=== PATIENT | female | born 1975 | race Caucasian/White ===

== ENCOUNTER 2017-05-13 21:42 | Emergency (ER) | payer OTHER ==
[~2017-05-13] VITALS: Ht 160 cm; Wt 79.4 kg
--- NOTE | ~2017-05-13 | CR72 ---
[facility]. [facility] A Service of [facility] & [facility] RADIOLOGY TEXT RESULTS PATIENT: STELLA SOLIS LOCATION: SED : 71 UNIT #: [id number] AGE: [address]: Favian Manning DO SEX: F ORDER DR: [id number] [place] [id number] E MR#: [id number] Acc #: [id number] NAME: STELLA SOLIS : 1975 SEX: F STUDY DATE/TIME: 05/13/2017 22:39 UNIT: SED ROOM: STUDY DESCRIPTION: CR Chest Single View Portable Attending Physician: Favian Manning Ordering Physician: Favian Manning Primary Care Physician: Primary Care Physician No MEDICAL IMAGING REPORT This report is preliminary unless electronic signature is present. EXAM Chest x-ray, 05/13/2017 HISTORY 42-year-old female in the ED complaining of chest pain and shortness of air beginning earlier today. TECHNIQUE AP portable upright chest x-ray. FINDINGS Heart size and pulmonary vascularity are normal. The lungs are clear. No visible pulmonary infiltrate or pleural effusion. No change since 02/12/2012. IMPRESSION Negative chest. Dictated by... Zen Merida M.D. THIS IS AN ELECTRONICALLY VERIFIED REPORT Zen Merida M.D. at 05/14/2017 5:58 AM KAMALJIT/miller TD: 05/14/2017 03:48 JOB #: [id number] MEDICAL IMAGING REPORT Page 1 of 1
--- NOTE | ~2017-05-13 | EKG ---
PATIENT: STELLA SOLIS UNIT #: [id number] Ventricular Rate: 95 BPM Atrial Rate: 95 BPM P-R Interval: 144 ms QRS Duration: 90 ms Q-T Interval: 378 ms QTC Calculation(Bezet): 475 ms P [place]: 46 degrees Calculated R [place]: 49 degrees Calculated T [place]: 67 degrees Diagnosis Line: Normal sinus rhythm with sinus arrhythmia Diagnosis Line: Anterior infarct (cited on or before 13-JUL-2011) Diagnosis Line: Abnormal ECG Diagnosis Line: When compared with ECG of 13-JUL-2011 13:51, Diagnosis Line: T wave inversion no longer evident in Anterior Diagnosis Line: leads Diagnosis Line: Confirmed by MAGED DICKSON MD ([id number]) on Diagnosis Line: 05/23/2017 9:54:17 PM INTERPRETING MD: LILI
[~2017-05-13 21:42] MED LIST: ALBUTEROL17 GM INH; ALPRAZOLAM PO; ASPIRIN325 M1 PO; ATENOLOL PO; ATIVAN PO; BIRTH CONTROL PILL PO; DILANTIN PO; ESTRACE1 MG PO; IBUPROFEN600 MG PO; NEURONTIN800 MG PO; NO MEDICATIONS; PEN-VEE K PO; PERCOCET 10/3251 TAB PO; PERSANTINE75 MG PO; PREDNISONE PO; PROTONIX PO; SIMVASTATIN40 MG PO; TOPROL XL 50 MG50 MG PO; UNKNOWN BP PILL; VEETIDS 500500 M1 PO; VERMOX PO; VIBRAMYCIN100 M1 PO; VOLTAREN50 MG PO; VOLTAREN75 MG PO; ZANTAC150 M1 PO
[2017-05-13] MEDS ORDERED: LISINOPRIL (21:57)
[2017-05-13] MEDS ORDERED: ATENOLOL (21:57)
[2017-05-13] MEDS ORDERED: LIPITOR (21:58)
[2017-05-13 22:14] LABS: BASOPHIL# 0.1 X10e3 (0-0.3); BASOPHIL% 1.1 % (0-2.5); EOSINOPHIL# 0.2 X10e3 (0-0.7); EOSINOPHIL% 2.1 % (0.0-7.0); HEMATOCRIT 39.9 % (35.0-45.0); HEMOGLOBIN 13.6 gm/dL (12.0-16.0); LYMPHOCYTE# 3.7 X10e3 (1.0-3.5); LYMPHOCYTE% 31.7 % (17.0-45.0); MEAN CELL VOLUME 90.1 FL (83-96); MEAN CORPUSCULAR HEMOGLOBIN 30.7 PG (28-34); MEAN PLATELET VOLUME 7.5 FL (6.5-11.5); MONOCYTE# 0.9 X10e3 (0-1.0); MONOCYTE% 7.3 % (3.0-12.0); NEUTROPHIL# 6.8 X10e3 (1.5-7.1); NEUTROPHIL% 57.8 % (40-75); PLATELET COUNT 478 X10e3 (140-420); RED BLOOD COUNT 4.43 X10e (3.90-5.30); RED CELL DISTRIBUTION WIDTH 13.7 % (11.0-15.5); WHITE BLOOD COUNT 11.8 X10e3 (4.0-10.5)
[2017-05-13 22:16] LABS: DIFF IND NO
[2017-05-13 22:28] LABS: POC - CKMB 2.7 ng/mL (0.0-7.9)
[2017-05-13 22:29] LABS: PROTHROMBIN TIME (PATIENT) 11.3 SECONDS (9.5-12.4)
[2017-05-13 22:29] LABS: POC - TROPONIN <0.05 ng/mL (<=0.05)
[2017-05-13 22:31] LABS: ALBUMIN SERUM 3.9 g/dL (3.5-5.0); ALKALINE PHOSPHATASE 111 U/L (32-92); ALT (SGPT) 16 U/L (10-40); AST (SGOT) 16 U/L (10-42); BILIRUBIN,TOTAL 0.4 mg/dL (0.2-2.0); BLOOD UREA NITROGEN 12 mg/dL (9-23); CALCIUM SERUM 8.8 mg/dL (8.4-10.2); CARBON DIOXIDE 26 mmol/L (22-31); CHLORIDE 104 mmol/L (100-111); CREATININE SERUM 0.8 mg/dL (0.6-1.4); GLOM FILT RATE Estimated 89.7 mL/min (>60); GLUCOSE FASTING 105 mg/dL (70-110); POTASSIUM 3.8 mmol/L (3.5-5.1); PROTEIN TOTAL SERUM 7.4 g/dL (6.0-8.3); SODIUM 136 mmol/L (135-145)
[2017-05-13 22:32] LABS: BILIRUBIN, DIRECT <0.1 mg/dL (0.0-0.2); BILIRUBIN,INDIRECT 0.3 mg/dL (0.0-0.9)
[2017-05-13 22:36] LABS: PARTIAL THROMBOPLASTIN TIME 24.7 SECONDS (25.6-38.1)
[2017-05-14 00:07] LABS: POC - CKMB 1.4 ng/mL (0.0-7.9); POC - TROPONIN <0.05 ng/mL (<=0.05)
== END 2017-05-14 02:05 ==
LOC: SED 21:42
PROVIDERS: Emergency Medicine
DX: R07.89 Other chest pain (principal); I10 Essential (primary) hypertension; I25.2 Old myocardial infarction; F17.210 Nicotine dependence, cigarettes, uncomplicated; Z95.818 Presence of other cardiac implants and grafts; Z88.8 Allergy status to other drugs, medicaments and biological substances
CPT/HCPCS: 36415; 71010; 80048; 80076; 82553; 83880; 84484; 85025; 85610; 85730; 93005; 99285

== ENCOUNTER 2017-06-06 15:58 | Emergency (ER) | payer OTHER ==
[~2017-06-06] VITALS: Ht 160 cm; Wt 77.1 kg
--- NOTE | ~2017-06-06 | CR72 ---
[facility]. [facility] A Service of [facility] & [facility] RADIOLOGY TEXT RESULTS PATIENT: STELLA SOLIS LOCATION: SED : [birth year] UNIT #: [id number] AGE: [address]: Christopher Kumar MD SEX: F ORDER DR: [id number] [place] [id number] E MR#: [id number] Acc #: [id number] NAME: STELLA SOLIS : 1975 SEX: F STUDY DATE/TIME: 06/06/2017 16:16 UNIT: SED ROOM: STUDY DESCRIPTION: CR Chest Single View Portable Attending Physician: Christopher Kumar M.D. Ordering Physician: Tiffani Shane M.D. Primary Care Physician: Primary Care Physician No MEDICAL IMAGING REPORT This report is preliminary unless electronic signature is present. EXAM Portable chest INDICATION Chest pain for 3 days. COMPARISON 05/19/2017 FINDINGS Small left pleural effusion. Interval sternotomy. Heart size stable. IMPRESSION Interval sternotomy. Small left-sided pleural effusion. Dictated by... Bradley Arita M.D. THIS IS AN ELECTRONICALLY VERIFIED REPORT Bradley Arita M.D. at 06/07/2017 7:01 AM CAMERON/vickie TD: 06/07/2017 03:06 JOB #: [id number] MEDICAL IMAGING REPORT Page 1 of 1
--- NOTE | ~2017-06-06 | EKG ---
PATIENT: STELLA SOLIS UNIT #: [id number] Ventricular Rate: 80 BPM Atrial Rate: 80 BPM P-R Interval: 148 ms QRS Duration: 76 ms Q-T Interval: 386 ms QTC Calculation(Bezet): 445 ms P [place]: 55 degrees Calculated R [place]: 74 degrees Calculated T [place]: 134 degrees Diagnosis Line: Normal sinus rhythm Diagnosis Line: Cannot rule out Septal infarct (cited on or before Diagnosis Line: 13-JUL-2011) Diagnosis Line: bordwe Diagnosis Line: When compared with ECG of 13-MAY-2017 21:49, Diagnosis Line: Questionable change in initial forces of Anterior Diagnosis Line: leads Diagnosis Line: T wave inversion now evident in Anterolateral Diagnosis Line: leads Diagnosis Line: Confirmed by IAIN HIDALGO MD ([id number]) on 06/09/2017 Diagnosis Line: 7:00:52 PM INTERPRETING MD: GWEN STEELE
--- NOTE | ~2017-06-06 | EKG ---
PATIENT: STELLA SOLIS UNIT #: [id number] Ventricular Rate: 80 BPM Atrial Rate: 80 BPM P-R Interval: 148 ms QRS Duration: 76 ms Q-T Interval: 386 ms QTC Calculation(Bezet): 445 ms P [place]: 55 degrees Calculated R [place]: 74 degrees Calculated T [place]: 134 degrees Diagnosis Line: Normal sinus rhythm Diagnosis Line: Cannot rule out Septal infarct (cited on or before Diagnosis Line: 13-JUL-2011) Diagnosis Line: Borderline ECG Diagnosis Line: When compared with ECG of 13-MAY-2017 21:49, Diagnosis Line: Questionable change in initial forces of Anterior Diagnosis Line: leads Diagnosis Line: T wave inversion now evident in Anterolateral Diagnosis Line: leads Diagnosis Line: Reconfirmed by IAIN HIDALGO MD ([id number]) on Diagnosis Line: 06/09/2017 7:01:15 PM INTERPRETING MD: GWEN STEELE
--- NOTE | ~2017-06-06 | CT16 ---
[facility] A Service of [facility] / [facility] RADIOLOGY TEXT RESULTS PATIENT: STELLA SOLIS LOCATION: SED : [birth year] UNIT #: [id number] AGE: [address]: Christopher Kumar MD SEX: F ORDER DR: [id number] [place] [id number] E MR#: [id number] Acc #: [id number] NAME: STELLA SOLIS : 1975 SEX: F STUDY DATE/TIME: 06/06/2017 18:52 UNIT: SED ROOM: STUDY DESCRIPTION: CT Angio Chest for PE Attending Physician: Christopher Kumar M.D. Ordering Physician: Tiffani Shane M.D. Primary Care Physician: No Primary Care Physician MEDICAL IMAGING REPORT This report is preliminary unless electronic signature is present. EXAM CT chest PE protocol. HISTORY Chest pain for 3 days, bypass surgery May 10 TECHNIQUE Axial images form through the chest following IV contrast. 3-D coronal and sagittal reconstructed images reviewed. This CT exam was performed with one or more of the following radiation dose reduction techniques: automatic exposure control, adjustment of mA and/or kV according to patient size, and iterative reconstruction. FINDINGS Small left pleural effusion. Small amount of left basilar atelectasis. Trachea bronchi unremarkable. No evidence of pulmonary embolus. Heart size within normal limits. A small amount of pericardial fluid. Patient is post median sternotomy and apparent CABG. Some induration and edema seen in the anterior mediastinum consistent with recent operative intervention. The aorta free dissection or aneurysm. The upper abdomen unremarkable. Thoracic spine thoracic inlet unremarkable. IMPRESSION 1. No evidence of pulmonary embolus. 2. Postsurgical changes from recent median sternotomy and CABG. Small amount of edema within the anterior mediastinum as well as a small left pleural effusion and a trace of pericardial effusion. I suspect these represent normal expected postoperative findings. [facility] A Service of [facility] / [facility] RADIOLOGY TEXT RESULTS PATIENT: STELLA SOLIS LOCATION: SED : [birth year] UNIT #: [id number] AGE: [address]: Christopher Kumar MD SEX: F ORDER DR: Dictated by... Tyron Arita M.D. THIS IS AN ELECTRONICALLY VERIFIED REPORT Tyron Arita M.D. at 06/07/2017 2:32 PM Isaac TD: 06/07/2017 06:18 JOB #: [id number] MEDICAL IMAGING REPORT Page 1 of 1
[~2017-06-06 15:58] MED LIST changes: +ATENOLOL; +LIPITOR; +LISINOPRIL
[2017-06-06] MEDS ORDERED: METOPROLOL SUC100 MG (16:15)
[2017-06-06] MEDS ORDERED: ASPIRIN81 M2 (16:15)
[2017-06-06] MEDS ORDERED: PROTONIX (16:15)
[2017-06-06] MEDS ORDERED: LASIX (16:15)
[2017-06-06] MEDS ORDERED: ALPRAZOLAM (16:15)
[2017-06-06 16:57] LABS: POC - CKMB 2.4 ng/mL (0.0-7.9)
[2017-06-06 16:58] LABS: POC - MYOGLOBIN 64.6 ng/mL (0.0-169.0); POC - TROPONIN <0.05 ng/mL (<=0.05)
[2017-06-06 17:11] LABS: BASOPHIL# 0.2 X10e3 (0-0.3); BASOPHIL% 1.3 % (0-2.5); EOSINOPHIL# 0.3 X10e3 (0-0.7); EOSINOPHIL% 2.2 % (0.0-7.0); HEMATOCRIT 30.2 % (35.0-45.0); HEMOGLOBIN 10.1 gm/dL (12.0-16.0); LYMPHOCYTE# 3.3 X10e3 (1.0-3.5); LYMPHOCYTE% 22.9 % (17.0-45.0); MEAN CELL VOLUME 89.5 FL (83-96); MEAN CORPUSCULAR HGB CONC 33.6 g/dL (30-36); MEAN PLATELET VOLUME 7.1 FL (6.5-11.5); MONOCYTE% 6.8 % (3.0-12.0); NEUTROPHIL# 9.5 X10e3 (1.5-7.1); NEUTROPHIL% 66.8 % (40-75); PLATELET COUNT 952 X10e3 (140-420); RED BLOOD COUNT 3.37 X10e (3.90-5.30); RED CELL DISTRIBUTION WIDTH 14.2 % (11.0-15.5); WHITE BLOOD COUNT 14.2 X10e3 (4.0-10.5)
[2017-06-06 17:31] LABS: DIFF IND NO
[2017-06-06 17:35] LABS: INR 1.1; PROTHROMBIN TIME (PATIENT) 12.9 SECONDS (9.5-12.4)
[2017-06-06 17:45] LABS: PARTIAL THROMBOPLASTIN TIME 23.6 SECONDS (25.6-38.1)
[2017-06-06 18:10] LABS: ALBUMIN SERUM 3.7 g/dL (3.5-5.0); ALKALINE PHOSPHATASE 152 U/L (32-92); ALT (SGPT) 18 U/L (10-40); AST (SGOT) 18 U/L (10-42); BILIRUBIN, DIRECT 0.1 mg/dL (0.0-0.2); BILIRUBIN,INDIRECT 0.2 mg/dL (0.0-0.9); BILIRUBIN,TOTAL 0.3 mg/dL (0.2-2.0); BLOOD UREA NITROGEN 13 mg/dL (9-23); BUN/CREATININE RATIO 18.57; CALCIUM SERUM 8.6 mg/dL (8.4-10.2); CARBON DIOXIDE 26 mmol/L (22-31); CHLORIDE 106 mmol/L (100-111); CREATININE SERUM 0.7 mg/dL (0.6-1.4); GLOM FILT RATE Estimated 105.4 mL/min (>60); GLUCOSE FASTING 86 mg/dL (70-110); LIPASE 28 U/L (22-51); POTASSIUM 3.1 mmol/L (3.5-5.1); PROTEIN TOTAL SERUM 7.4 g/dL (6.0-8.3); SODIUM 139 mmol/L (135-145)
[2017-06-06 18:14] LABS: URINE SOURCE CLEAN CATCH
[2017-06-06 18:19] LABS: URINE APPEARANCE CLEAR; URINE BILIRUBIN NEG (NEG); URINE BLOOD NEG (NEG); URINE COLOR YELLOW; URINE GLUCOSE NEG (NORM); URINE KETONE NEG (NEG); URINE LEUKOCYTE ESTERASE NEG (NEG); URINE NITRATE NEG (NEG); URINE PROTEIN NEG (NEG); URINE SPECIFIC GRAVITY <=1.005 (1.003-1.035); URINE UROBILINOGEN 0.2 MG/DL (NORM)
[2017-06-06 18:20] LABS: MICRO INDICATED? NO
[2017-06-06 18:22] LABS: ALCOHOL BLOOD <5 mg/dL (0)
[2017-06-06 18:33] LABS: AMPHETAMINE POS (NEG); BARBITURATES NEG (NEG); BENZODIAZEPINES NEG (NEG); COCAINE NEG (NEG); MARIJUANA NEG (NEG); OPIATES NEG (NEG); TRICYCLIC ANTIDEPRESSANTS NEG (NEG); U METHADONE NEG (NEG)
[2017-06-06 18:46] LABS: POC - CKMB 2.3 ng/mL (0.0-7.9); POC - MYOGLOBIN 48.5 ng/mL (0.0-169.0); POC - TROPONIN <0.05 ng/mL (<=0.05)
== END 2017-06-06 20:09 | disposition home or self-care (01) ==
LOC: SED 15:58
PROVIDERS: Student in an Organized Health Care Education/Training Program
DX: R07.89 Other chest pain (principal); R05 Cough; I10 Essential (primary) hypertension; I25.10 Atherosclerotic heart disease of native coronary artery without angina pectoris; I25.2 Old myocardial infarction; F17.200 Nicotine dependence, unspecified, uncomplicated; Z79.899 Other long term (current) drug therapy; Z88.8 Allergy status to other drugs, medicaments and biological substances
CPT/HCPCS: 36415; 71010; 71275; 80048; 80076; 80307; 81003; 82553; 83690; 83874; 83880; 84484; 85025; 85610; 85730; 93005; 99285; G0480; Q9967